=== PATIENT | female | born 1955 | race Caucasian/White ===

== ENCOUNTER 2024-03-31 08:51 | Day surgery (SDC) | payer MEDICARE, SELFPAY ==
[2024-03-31] VITALS (8 sets, daily range): BP systolic 136–173; BP diastolic 70–106; PULSE 84–98; RESP 16–22; TEMP 36.2–36.6; O2SAT 92–100; BMI 24.6
[2024-03-31] MEDS: TETRACAINE 0.5% OPTH SOL 15ML OP ×3 (09:30→09:43)
[2024-03-31] MEDS: PHENYLEPHRINE 2.5% OPHTH SOLN 2ML OP ×3 (09:31→09:42)
[2024-03-31] MEDS: CYCLOPENTOLATE 2% OPHTH SOLN 2ML BOTTLE OP ×3 (09:31→09:43)
[2024-03-31] MEDS: MIDAZOLAM 2MG/2ML VIAL 1 MG IV (11:37)
[2024-03-31] MEDS: MIDAZOLAM 2MG/2ML VIAL 2 MG (11:41)
[2024-03-31] MEDS: TIMOLOL 0.5% OPTH SOLN 5ML OP (11:41)
[2024-03-31] MEDS: TOBRAMYCIN/DEX OPTH SUSP 2.5ML OP (11:41)
[2024-03-31] MEDS: LIDOCAINE 1% PF 2ML AMPULE 2 ML IJ (11:42)
--- NOTE | 2024-05-05 10:44 | P.PCN_ITS ---
[facility] Procedure Note Date: 03/31/24 Time: 12:00 Procedure Note:: Preoperative Diagnosis: Cataract combined NS Cortical Complex [Left] Eye Postop diagnosis: same Operation: Microscopic phacoemulsification with intraocular lens implant [Left] Eye Specimen: None Blood Loss: None The patient was examined in the office with a complaint of poor vision in the [left] eye. The patient reports that this interferes with ADLs such as reading, watching TV and/or driving or the vision is like looking through a foggy haze and is very troubling. The patient was examined and found to have a visually significant cataract with best corrected vision of [20/400] by refraction and/or glare testing. Treatment options, risks and benefits were explained and the patient elected to have cataract surgery in an attempt to improve their vision. The patient had the eye anesthetized with topical tetracaine, the eye ways prepped and draped in the usual fashion for cataract surgery. A paracentesis and a temporal keratotomy were made. 0.2cc of 1% lidocaine PF was placed into the anterior chamber. Vision Blue was instilled into the anterior chamber and allow to remaing for about 20 seconds, then aspirated out of the eye. An aqueous/viscoelastic exchange was done and a 360 degree capsulorexis was per formed. Through hydrodissection and delineation with BSS on a cannula was done. The lens nucleus was phecoemulsified with CDE of [6.00]. Residual cortical material was removed using automated I&A The capsular bag was deepened with viscoelastica and a PCIOL was placed in the capsular bag with good centration and stability. Residual viscoelastic was removed using automated I&A. The keratotomy incision was hydrated with BSS on a cannula. The wound were checked and found to be water tight. IOP was checked digitally and adjusted as needed so as not to be too high. 1 drop of timolol 0.5%, ofloxacin, prednisolone acetate and ketorolac was instilled and eye shield taped over the eye. The patient was taken to recovery in good condition and will be seen postoperatively.
== END 2024-03-31 12:17 | disposition home or self-care (01) ==
PROVIDERS: PCP Family Medicine; Visit Provider Ophthalmology
PROC: (CPT 66984; principal; 2024-03-31 11:30)
DX: H25.812 Combined forms of age-related cataract, left eye (principal)
CPT/HCPCS: 66984; J2250; V2632

== ENCOUNTER 2024-05-05 06:46 | Day surgery (SDC) | payer MEDICARE, SELFPAY ==
[2024-04-29 14:20] VITALS: BMI 25.6
[2024-05-05] VITALS (7 sets, daily range): BP systolic 147–171; BP diastolic 70–96; PULSE 76–94; RESP 16–18; TEMP 36.2–36.6; O2SAT 96–100
[2024-05-05] MEDS: TETRACAINE 0.5% OPTH SOL 15ML OP ×3 (07:06→07:07)
[2024-05-05] MEDS: PHENYLEPHRINE 2.5% OPHTH SOLN 2ML OP ×2 (07:06→07:07)
[2024-05-05] MEDS: CYCLOPENTOLATE 2% OPHTH SOLN 2ML BOTTLE OP ×3 (07:06→07:07)
[2024-05-05] MEDS: SODIUM CHLORIDE 0.9% 10ML FLUSH SYRINGE 10 ML IV (08:02)
[2024-05-05] MEDS: MIDAZOLAM 2MG/2ML VIAL 1 MG IV (08:02)
[2024-05-05] MEDS: TIMOLOL 0.5% OPTH SOLN 5ML OP (08:12)
[2024-05-05] MEDS: TOBRAMYCIN/DEX OPTH SUSP 2.5ML OP (08:12)
[2024-05-05] MEDS: LIDOCAINE 1% PF 2ML AMPULE 2 ML IJ (08:13)
--- NOTE | 2024-05-05 10:27 | P.PCN_ITS ---
[facility] Procedure Note Date: 05/05/24 Time: : Procedure Note:: Preoperative Diagnosis: Cataract combined NS Cortical Complex [Right] Eye Postop diagnosis: same Operation: Microscopic phacoemulsification with intraocular lens implant [Right] Eye Specimen: None Blood Loss: None The patient was examined in the office with a complaint of poor vision in the [right] eye. The patient reports that this interferes with ADLs such as reading, watching TV and/or driving or the vision is like looking through a foggy haze and is very troubling. The patient was examined and found to have a visually significant cataract with best corrected vision of [20/CF 1ft] by refraction and/or glare testing. Treatment options, risks and benefits were explained and the patient elected to have cataract surgery in an attempt to improve their vision. The patient had the eye anesthetized with topical tetracaine, the eye ways prepped and draped in the usual fashion for cataract surgery. A paracentesis and a temporal keratotomy were made. 0.2cc of 1% lidocaine PF was placed into the anterior chamber. Vision Blue was instilled into the anterior chsamber and alowed to remain for 20-30 seconds, then aspirsted out of th eye. An aqueous/viscoelastic exchange was done and a 360 degree capsulorexis was performed. Through hydrodissection and delineation with BSS on a cannula was done. The lens nucleus was phacoemulsified with CDE of [22.79]. Residual cortical material was removed using automated I&A The capsular bag was deepened with viscoelastic and a PCIOL was placed in the capsular bag with good centration and stability. Residual viscoelastic was removed using automated I&A. The keratotomy incision was hydrated with BSS on a cannula. The wound were checked and found to be water tight. IOP was checked digitally and adjusted as needed so as not to be too high. 1 drop of timolol 0.5%, ofloxacin, prednisolone acetate and ketorolac was instilled and eye shield taped over the eye. The patient was taken to recovery in good condition and will be seen postoperatively.
== END 2024-05-05 08:35 | disposition home or self-care (01) ==
PROVIDERS: PCP Family Medicine; Visit Provider Ophthalmology
PROC: (CPT 66984; principal; 2024-05-05 07:30)
DX: H25.811 Combined forms of age-related cataract, right eye (principal)
CPT/HCPCS: 66984; J2250; V2632